=== PATIENT | female | born 1930 | race Hispanic/Latino ===

== ENCOUNTER 2017-01-13 02:58 | Observation (INO) | payer MEDICARE, BC ==
[2017-01-13 03:05] VITALS: BMI 27.2
--- NOTE | 2017-01-13 03:07 | ED PDOC ---
Arrival/HPI - General Chief Complaint: Syncope Time Seen by Provider: 01/13/17 03:00 Historian: Patient - History of Present Illness Narrative History of Present Illness (Text): 01/13/17 03:07 Belinda Orellana is an 86 year old female, whose past medical history includes hypertension, dementia, hyperlipidemia and syncope, was initially brought to the [facility] Emergency room by EMS for syncopal episode, subsequently transferred to [facility]. As per daughter, patient was found lying on the floor in her feces on her right side yesterday evening. Daughter states fall was unwitnessed. Patient had a CT head, Chest X-ray and lab performed prior to transfer. CT head and Chest X-ray were negative. Labs were positive for UTI. Daughter requested patient to be transferred to [facility] for further evaluation. Patient denies any complaints at this time. Time/Duration: 24 hours Symptom Onset: Sudden Symptom Course: Improving Activities at Onset: Light Context: Home Past Medical History - Provider Review Nursing Documentation Reviewed: Yes - Cardiac Hx Cardiac Disorders: Yes Hx Hypertension: Yes - Pulmonary Hx Respiratory Disorders: No - Neurological Hx Neurological Disorder: Yes Hx Dementia: Yes (Vascular) - HEENT Hx HEENT Disorder: No - Renal Hx Renal Disorder: No - Endocrine/Metabolic Hx Endocrine Disorders: No - Hematological/Oncological Hx Blood Disorders: No - Integumentary Hx Dermatological Disorder: No - Musculoskeletal/Rheumatological Hx Falls: No - Gastrointestinal Hx Gastrointestinal Disorders: No - Genitourinary/Gynecological Hx Genitourinary Disorders: No - Psychiatric Hx Psychophysiologic Disorder: No Hx Substance Use: No - Past Surgical History Past Surgical History: Non-Contributing - Suicidal Assessment Feels Threatened In Home Enviroment: No Family/Social History - Physician Review Nursing Documentation Reviewed: Yes Family/Social History: No Known Family HX Smoking Status: Never Smoked Hx Alcohol Use: No Hx Substance Use: No Hx Substance Use Treatment: No Allergies/Home Meds Allergies/Adverse Reactions: Allergies No Known Allergies Allergy (Verified 07/09/13 15:19) Home Medications: Home Meds Medication Instructions Recorded Confirmed Amlodipine Besylate/Benazepril 1 cap PO DAILY 01/13/17 01/13/17 [Amlodipine Besylate and Benazepril Hydrochlor] Donepezil [Aricept] 10 mg PO HS 01/13/17 01/13/17 Ezetimibe/Simvastatin [Vytorin 10 1 tab PO HS 01/13/17 01/13/17 mg-10 mg] traZODone [Desyrel] 25 mg PO HS 01/13/17 01/13/17 Review of Systems - Physician Review All systems were reviewed & negative as marked: Yes - Review of Systems Constitutional: Normal Eyes: Normal ENT: Normal Respiratory: Normal. absent: SOB, Cough Cardiovascular: Syncope Musculoskeletal: Normal Skin: Normal. absent: Rash Neurological: Normal. absent: Headache, Dizziness Endocrine: Normal. absent: Diaphoresis Psychiatric: Normal Physical Exam Vital Signs Reviewed: Yes Vital Signs Temp Pulse Resp BP Pulse Ox 01/13/17 03:07 98.7 F 83 20 152/69 H 97 Temperature: Afebrile Blood Pressure: Normal Pulse: Regular Respiratory Rate: Normal Appearance: Positive for: Well-Appearing, Non-Toxic, Comfortable Pain Distress: None Mental Status: Positive for: Alert and Oriented X 3 - Systems Exam Head: Present: Atraumatic, Normocephalic Pupils: Present: PERRL Extroacular Muscles: Present: EOMI Conjunctiva: Present: Normal Mouth: Present: Moist Mucous Membranes. No: Dry Neck: Present: Normal Range of Motion. No: Meningeal Signs, MIDLINE TENDERNESS , Paraspinal Tenderness, JVD, Lymphadenopathy, Bruit, Trachea Midline, Other Respiratory/Chest: Present: Clear to Auscultation, Good Air Exchange. No: Respiratory Distress, Accessory Muscle Use Cardiovascular: Present: Regular Rate and Rhythm, Normal S1, S2. No: Murmurs Abdomen: Present: Normal Bowel Sounds. No: Tenderness, Distention, Peritoneal Signs Back: Present: Normal Inspection Upper Extremity: Present: Normal Inspection. No: Cyanosis, Edema Lower Extremity: Present: Normal Inspection Neurological: Present: GCS=15, CN II-XII Intact, Speech Normal Skin: Present: Warm, Dry, Normal Color. No: Rashes Psychiatric: Present: Alert, Oriented x 3, Normal Insight, Normal Concentration Medical Decision Making ED Course and Treatment: 01/13/17 03:07 Impression: 86 year old female presented to the Emergency department for a syncopal episode. Differential Diagnosis included but are not limited to: UTI vs. syncope Plan: -- EKG -- Labs -- XR Right Elbow -- XR Right Hip -- XR Right Knee -- Blood Culture -- Urine Culture -- Urinalysis -- Reassess and disposition Prior Visits: Notes and results from previous visits were reviewed. On 07/10/13 patient presented to the Emergency department for a syncopal epidose. Patient was admitted to the hospital for further evaluation. Progress Notes: CT Head performed at [facility] Emergency department satellite shows no acute intracranial hemorrhage, Chest X-ray shows no acute processes. Will repeat labs. Pt was accepted by Dr. Ch prior to arrival under her service. Pt will go to Telemetry observation for syncope and UTI. 01/13/17 03:33 Reviewed EKG, NSR at [address]-segment elevations or depressions, no T-wave inversions, normal intervals. - EKG Interpretation Interpreted by ED Physician: Yes Type: 12 lead EKG - Scribe Statement The provider has reviewed the documentation as recorded by the Jamaibloree Ponce training under Lakesha Hooks. All medical record entries made by the Scribe were at my direction and personally dictated by me. I have reviewed the chart and agree that the record accurately reflects my personal performance of the history, physical exam, medical decision making, and the department course for this patient. I have also personally directed, reviewed, and agree with the discharge instructions and disposition. Disposition/Present on Arrival - Present on Arrival History of DVT/PE: No History of Uncontrolled Diabetes: No Urinary Catheter: No History of Decub. Ulcer: No History Surgical Site Infection Following: None - Disposition
[2017-01-13 04:27] LABS: ALB/GLOB RATIO 1.2 (1.1-1.8); ALKALINE PHOSPHATASE 83 U/L (38-126); ALT/SGPT 30 U/L (7-56); AST/SGOT 46 U/L (14-36); BILIRUBIN,TOTAL 0.8 mg/dL (0.2-1.3); BLOOD UREA NITROGEN 8 mg/dL (7-21); CARBON DIOXIDE 29 mmol/L (21-33); CHLORIDE 103 mmol/L (98-107); GFR AFRICAN-AMERICAN > 60; GLUCOSE,RANDOM 108 mg/dL (70-110); POTASSIUM 3.4 mmol/L (3.6-5.0); SODIUM 138 mmol/L (132-148); TOTAL PROTEIN 6.8 g/dL (5.8-8.3)
[2017-01-13] MEDS ORDERED: Potassium Chloride 20 mEq ER Tab PO STA (04:30)
[2017-01-13 04:40] LABS: TROPONIN I 0.02 ng/mL
[2017-01-13] MEDS: Sodium Chloride 0.9% 1,000 ML IV SCH ×2 (05:02→17:07)
[2017-01-13 05:05] LABS: BASO # 0.02 K/mm3 (0.0-2.0); BASO % 0.2 % (0.0-3.0); EOS % 0.4 % (1.5-5.0); GRAN # 7.04 (1.4-6.5); GRAN % 79.2 % (50.0-68.0); HEMATOCRIT 34.5 % (36.0-48.0); LYMPH # 1.4 (1.2-3.4); LYMPH % 16.2 % (22.0-35.0); MEAN CELL VOLUME 72.8 fl (80.0-105.0); MEAN CORPUSCULAR HGB CONC 31.6 g/dl (31.0-37.0); MEAN PLATELET VOLUME 10.1 fl (7.0-11.0); MONO # 0.4 (0.1-0.6); RED CELL DISTRIBUTION WIDTH 15.6 % (11.5-14.5); WHITE BLOOD COUNT 8.9 10^3/ul (4.5-11.0)
[2017-01-13 07:23] LABS: VENOUS BLOOD GAS BASE EXCESS 2.6 mmol/L (0.0-2.0); VENOUS BLOOD PH 7.43 (7.32-7.43)
--- NOTE | 2017-01-13 09:31 | CARD ---
APPROVED REPORT EKG Measurement Heart [id number] <Conclusion> Normal sinus rhythm NSSTW changes, new since ECG 07/10/13
--- NOTE | 2017-01-13 10:30 | RAD ---
PROCEDURE: Right Hip and pelvis Radiographs. HISTORY: fall COMPARISON: None. FINDINGS: BONES: Normal. No fracture. JOINTS: Normal. SOFT TISSUES: Normal. OTHER FINDINGS: None. IMPRESSION: Normal radiographs of right hip.
--- NOTE | 2017-01-13 10:31 | RAD ---
PROCEDURE: Right Knee Radiographs. HISTORY: fall COMPARISON: None. FINDINGS: BONES: Normal. No fracture. JOINTS: Normal. No osteoarthritis. JOINT EFFUSION: None. OTHER FINDINGS: None. IMPRESSION: Normal radiographs of the right knee.
--- NOTE | 2017-01-13 10:32 | RAD ---
PROCEDURE: Radiographs of the right elbow. HISTORY: fall COMPARISON: No prior. FINDINGS: BONES: Normal. No fracture. JOINTS: Normal. No osteoarthritis. SOFT TISSUES: Normal. JOINT EFFUSION: None. OTHER FINDINGS: None. IMPRESSION: Unremarkable radiographs of the right elbow.
[2017-01-13 11:55] LABS: CHOLESTEROL 157 mg/dL (130-200)
--- NOTE | 2017-01-13 19:57 | HP ---
HISTORY OF PRESENT ILLNESS: The patient is an 86-year-old with history of dementia, was taken to [facility], which she was evaluated by ER physician after she had a fall, so she was transferred to [facility] for further management and possible observation. The patient has history of dementia, history is taken from her daughter. She lives by herself. According to daughter, she went to the bathroom and after that she urinated on the floor and probably slipped and fell. She was able to crawl and daughter was trying to call her, but since she did not pharmacy picking tech the phone, she came in and she found her on the floor leaning on the right side. The patient cannot recall. She does not remember passing out. She cannot say that she slipped. No history of nausea or vomiting. No history of fever. No history of cough, congestion. PAST MEDICAL HISTORY: Significant for; 1. Hypertension. 2. Dementia. 3. Hyperlipidemia. ALLERGIES: SHE IS NOT ALLERGIC TO ANY MEDICATIONS. MEDICATIONS AT HOME: She is on trazodone, she is on Vytorin 10/10 daily, Aricept 10 mg daily, and amlodipine. SOCIAL HISTORY: She lives by herself. She has 8 children. PAST SURGICAL HISTORY: Significant for 7 vaginal delivery and one . REVIEW OF SYSTEMS: She does not complain of any headache. No nausea, no vomiting, no diarrhea. Eating and tolerating. PHYSICAL EXAMINATION VITAL SIGNS: She is afebrile. Pulse 69, respirations 20, blood pressure 141/64. LUNGS: Bilateral good airflow. No rhonchi or crackles. HEART: S1 and S2 audible. ABDOMEN: Soft, nontender. No rebound, no guarding. NEUROLOGICAL: She is awake, alert, oriented, but forgetful. Moves all extremities. LABORATORY EXAMINATION: WBC is 8.9, hemoglobin 10.9, hematocrit 34.5, platelet of 336. Chemistry; sodium 138, potassium 3.4, chloride 103, CO2 of 29, BUN 8, creatinine 0.7. Blood sugar of 108. LFTs are within normal limits. She has x-ray of the elbow unremarkable with no fracture. X-ray of the knee has normal findings. X-ray of the hip and pelvis also found to be normal. ASSESSMENT: 1. Status post fall, unwitnessed. 2. Right elbow contusion. 3. History of hypertension. 4. Hyperlipidemia. 5. Dementia. PLAN: We will get urine culture, physical therapy evaluation and treatment will be started. We will restart her usual medication. Discussed with the patient's daughter who is at the bedside. After physical therapy evaluation, will be assessed that she can be discharged home tomorrow or she should be a candidate of TCU. Meghan Ch MD
[2017-01-14 06:35] LABS: ALKALINE PHOSPHATASE 67 U/L (38-126); ALT/SGPT 35 U/L (7-56); AST/SGOT 45 U/L (14-36); BILIRUBIN,TOTAL 0.5 mg/dL (0.2-1.3); BLOOD UREA NITROGEN 7 mg/dL (7-21); CALCIUM 8.5 mg/dL (8.4-10.5); CARBON DIOXIDE 25 mmol/L (21-33); CHLORIDE 109 mmol/L (98-107); GFR AFRICAN-AMERICAN > 60; GLUCOSE,RANDOM 93 mg/dL (70-110); SODIUM 140 mmol/L (132-148); TOTAL PROTEIN 6.1 g/dL (5.8-8.3)
[2017-01-14 07:03] LABS: THYROID STIMULATING HORMONE 4.26 mIU/mL (0.46-4.68)
[2017-01-14] MEDS: Sodium Chloride 0.9% 1,000 ML IV SCH (07:33)
--- NOTE | 2017-01-14 10:37 | PN ---
DATE: 01/14/2017 SUBJECTIVE: The patient has no complaints of any chest pain. No shortness of breath and no headaches. PHYSICAL EXAMINATION: VITAL SIGNS: Temperature is 97.9, pulse of 80, blood pressure of 163/75, and respirations of 18. GENERAL: The patient is lying in bed, flat, comfortable. HEENT: No oral lesion. Anicteric sclerae. Moist mucosa. NECK: No JVD, adenopathy, or thyromegaly. CARDIOVASCULAR: S1 and S2, regular. No murmurs, rubs, or gallops. LUNGS: Clear to auscultation bilaterally. No wheeze, rales, or rhonchi. ABDOMEN: Bowel sounds are positive, soft, nontender and nondistended. EXTREMITIES: No cyanosis, clubbing or edema. On the right elbow, there is mild swelling and no redness. LABORATORY DATA: White count of 8.9, hemoglobin of 10.9, and creatinine of 0.7. ASSESSMENT: 1. Fall. 2. Right elbow contusion. 3. Dementia. 4. Dyslipidemia. 5. Hypertension. PLAN: The patient is currently comfortable. The patient is going to continue her [facility] for hypertension. She has potassium replaced. I did speak to the patient's daughter to give an update. We will get physical therapy and possible home visiting nurses to home. Condition is stable. Activities increase as tolerated. Charanjit Garner MD
[2017-01-14 10:57] LABS: FREE T4 1.4 ng/dL (0.78-2.19)
--- NOTE | 2017-01-14 11:18 | DS ---
HISTORY OF PRESENT ILLNESS: The patient is an 86-year-old female who had come into the hospital with past medical history of dementia. She had a fall. She was transferred to the [place] ER for further management. The patient has no complaints of any chest pain, no shortness of breath, no headaches. She had multiple x-rays done that showed no fractures. She is eating. She is awake and alert. PHYSICAL EXAMINATION: VITAL SIGNS: Temperature is 98.2, blood pressure is 150/60, respirations 18, O2 saturation 93%. GENERAL: The patient is lying in bed, flat, comfortable. HEENT: No oral lesion. Anicteric sclerae. Moist mucosa. NECK: No JVD, adenopathy, or thyromegaly. CARDIOVASCULAR: S1 and S2, regular. No murmurs, rubs, or gallops. LUNGS: Clear to auscultation bilaterally. No wheeze, rales, or rhonchi. ABDOMEN: Bowel sounds are positive, soft, nontender and nondistended. EXTREMITIES: No cyanosis, clubbing or edema. ASSESSMENT: 1. Fall. 2. Right elbow contusion. 3. Hypertension. 4. Dyslipidemia. 5. Dementia. PLAN: The patient is currently comfortable. She had no events on telemetry. She is on Aricept for her dementia. She is on amlodipine for her hypertension. Her blood pressure is controlled. She is on IV fluids. I will discontinue the patient's IV fluids at this point. Her potassium is back to normal at 4.0, it was low when she came into the hospital at 3.4. Her TSH is normal at 4.26. She is on a heart-healthy diet. We will speak to the patient's family. If they are agreeable, we will discharge the patient home. Charanjit Garner MD
[2017-01-14 11:24] VITALS: O2SAT 94
[2017-01-14 13:32] VITALS: BP 140/66; PULSE 76; RESP 20; TEMP 99.2
== END 2017-01-14 16:14 | disposition home health service (06) ==
LOC: ED 02:58 → ERH 03:13 → 3RSO 05:24
PROVIDERS: ADMIT Internal Medicine; ATTEND Internal Medicine Nephrology
DX: R55 Syncope and collapse (principal); N39.0 Urinary tract infection, site not specified; S50.01XA Contusion of right elbow, initial encounter; F03.90 Unspecified dementia, unspecified severity, without behavioral disturbance, psychotic disturbance, mood disturbance, and anxiety; I10 Essential (primary) hypertension; E78.5 Hyperlipidemia, unspecified; W19.XXXA Unspecified fall, initial encounter; Y92.009 Unspecified place in unspecified non-institutional (private) residence as the place of occurrence of the external cause
CPT/HCPCS: 36415; 73080; 73502; 73560; 80053; 80061; 82803; 84439; 84443; 84484; 85025; 87040; 93005; 97116; 97161; 97530; 99285; G0378; G8978; G8979; J7040

== ENCOUNTER 2017-10-31 13:40 | Emergency (ER) | payer MEDICARE, BC ==
[2017-10-31 13:40] VITALS: BMI 27.2
--- NOTE | 2017-10-31 14:01 | ED PDOC ---
Arrival/HPI - General Chief Complaint: Trauma Time Seen by Provider: 10/31/17 13:43 Historian: Patient - History of Present Illness Narrative History of Present Illness (Text): 10/31/17 13:56 86 year old female, whose past medical history includes hypertension, hyperlipidemia and,dementia, presents to the emergency department s/p trip and fall. Patient was walking outside today for her daily walk when she tripped over curb. The fall was witnessed by multiple people who confirmed her fall after tripping on the curb. As per EMS, a bystander said patient had no loss of consciousness. She denies any anticoagulant use. Patient's last Tetanus was less than 10 years ago. Patient complaining of mild headache, but denies any chest pain, shortness of breath, nausea, vomiting, diarrhea, urinary symptoms, back pain, neck pain, hip pain, dizziness, or any other complaints. PMD: Dr. Jackson 10/31/17 16:56 Time/Duration: Prior to Arrival Symptom Onset: Sudden Activities at Onset: Light Context: Tripped Past Medical History - Provider Review Nursing Documentation Reviewed: Yes - Cardiac Hx Cardiac Disorders: Yes Hx Hypertension: Yes - Pulmonary Hx Respiratory Disorders: No - Neurological Hx Neurological Disorder: Yes Hx Dementia: Yes (Vascular) - HEENT Hx HEENT Disorder: No - Renal Hx Renal Disorder: No - Endocrine/Metabolic Hx Endocrine Disorders: No - Hematological/Oncological Hx Blood Disorders: No - Integumentary Hx Dermatological Disorder: No - Musculoskeletal/Rheumatological Hx Falls: No - Gastrointestinal Hx Gastrointestinal Disorders: No - Genitourinary/Gynecological Hx Genitourinary Disorders: No - Psychiatric Hx Psychophysiologic Disorder: No Hx Substance Use: No - Past Surgical History Past Surgical History: Non-Contributing - Anesthesia Hx Anesthesia: Yes Hx Anesthesia Reactions: No Hx Malignant Hyperthermia: No - Suicidal Assessment Feels Threatened In Home Enviroment: No Family/Social History - Physician Review Nursing Documentation Reviewed: Yes Family/Social History: No Known Family HX Smoking Status: Never Smoked Hx Alcohol Use: No Hx Substance Use: No Hx Substance Use Treatment: No Allergies/Home Meds Allergies/Adverse Reactions: Allergies No Known Allergies Allergy (Verified 07/09/13 15:19) Home Medications: Home Meds Medication Instructions Recorded Confirmed Amlodipine Besylate/Benazepril 1 cap PO DAILY 01/13/17 01/14/17 [Amlodipine-Benazepril 10-20 mg] Donepezil [Aricept] 10 mg PO DAILY 01/13/17 01/14/17 Ezetimibe/Simvastatin [Vytorin 1 tab PO HS 01/13/17 01/13/17 10-10 mg Tablet] traZODone [Desyrel] 25 mg PO HS 01/13/17 01/14/17 Review of Systems - Physician Review All systems were reviewed & negative as marked: Yes - Review of Systems Respiratory: absent: SOB Cardiovascular: absent: Chest Pain Gastrointestinal: absent: Diarrhea, Nausea, Vomiting Genitourinary Female: absent: Dysuria, Frequency, Hematuria Musculoskeletal: absent: Back Pain, Neck Pain, Other (hip pain) Neurological: Headache. absent: Dizziness, Other (loss of consciousness) Physical Exam Vital Signs Reviewed: Yes Vital Signs Pulse Resp BP Pulse Ox 10/31/17 17:00 74 19 163/55 H 96 10/31/17 13:50 79 18 176/72 H 95 Temperature: Afebrile Blood Pressure: Hypertensive Pulse: Regular Respiratory Rate: Normal Appearance: Positive for: Well-Appearing, Non-Toxic, Comfortable Pain Distress: None Mental Status: Positive for: Alert and Oriented X 3 - Systems Exam Head: Present: Atraumatic, Normocephalic, Laceration (3cm laceration to the anterior forehead. No active blessing) Pupils: Present: PERRL Extroacular Muscles: Present: EOMI Conjunctiva: Present: Normal Mouth: Present: Moist Mucous Membranes Neck: Present: Normal Range of Motion. No: MIDLINE TENDERNESS Respiratory/Chest: Present: Clear to Auscultation, Good Air Exchange. No: Respiratory Distress, Accessory Muscle Use Cardiovascular: Present: Regular Rate and Rhythm, Normal S1, S2. No: Murmurs Abdomen: No: Tenderness, Distention, Peritoneal Signs Back: Present: Normal Inspection Upper Extremity: Present: Other (quarter sized bruise to the left forearm). No : Cyanosis, Edema Lower Extremity: Present: Normal Inspection. No: Edema Neurological: Present: GCS=15, CN II-XII Intact, Speech Normal Skin: Present: Warm, Dry, Normal Color. No: Rashes Psychiatric: Present: Alert, Oriented x 3, Normal Insight, Normal Concentration Medical Decision Making ED Course and Treatment: 10/31/17 14:00 Impression: 86 year old female presents complaining of a headache s/p trip and fall over a curb. Plan: -- CT head w/o contrast -- Reassess and disposition Progress Notes: PROCEDURE: CT HEAD WITHOUT CONTRAST. Dictator : Ken Richardson MD Report Date : 10/31/2017 15:43:46 IMPRESSION: No acute intracranial findings 10/31/17 15:56 CT head negative. Laceration repaired by me and sutures placed. Bacitracin applied. Daughter requesting ua and ucx as requested by other family members but patient and daughter continue to report, "she is fine, she just tripped, we are just trying to shut them up." Patient denies dysuria. 10/31/17 17:21 Spoke to patient and daughter at length. Now reports frequency. Will dc with antibiotics for uti. Were given detailed return instructions. - Lab Interpretations Lab Results: Lab Results 10/31/17 15:53: Urine Color Yellow, Urine Appearance Clear, Urine pH 7.5, Ur Specific [place] 1.010, Urine Protein Negative, Urine Glucose (UA) Negative, Urine Ketones Negative, Urine Blood Negative, Urine Nitrate Negative, Urine Bilirubin Negative, Urine Urobilinogen 0.2, Ur Leukocyte Esterase Moderate H, Urine RBC 0 - 2, Urine WBC 20 - 25, Ur Epithelial Cells 6 - 8, Urine Bacteria Many - RAD Interpretation Radiology Orders: 10/31/17 13:49 HEAD W/O CONTRAST [CT] Stat - Medication Orders Current Medication Orders: Discontinued Medications Acetaminophen (Tylenol 325mg Tab) 650 mg PO STAT STA Stop: 10/31/17 14:23 Last Admin: 10/31/17 14:52 Dose: 650 mg MAR Pain/Vitals Document 10/31/17 14:52 EQ (Rec: 10/31/17 14:52 EQ [id number]) Pain Reassessment Is This A Pain ReAssessment? No Sleep Is patient sleeping during reassessment? No Presence of Pain Presence of Pain Yes Bacitracin (Bacitracin) 1 ea TOP STAT STA Stop: 10/31/17 15:55 Last Admin: 10/31/17 16:14 Dose: Not Given Non-Admin Reason: Patient Refused Lidocaine HCl (Lidocaine 1% 5 Ml) 0 mg IJ STAT STA Stop: 10/31/17 15:33 Last Admin: 10/31/17 15:54 Dose: 50 mg - Scribe Statement The provider has reviewed the documentation as recorded by the Leigha Scott Provider Scribe Attestation: All medical record entries made by the Jamaibloree were at my direction and personally dictated by me. I have reviewed the chart and agree that the record accurately reflects my personal performance of the history, physical exam, medical decision making, and the department course for this patient. I have also personally directed, reviewed, and agree with the discharge instructions and disposition. Disposition/Present on Arrival - Present on Arrival Any Indicators Present on Arrival: No History of DVT/PE: No History of Uncontrolled Diabetes: No Urinary Catheter: No History of Decub. Ulcer: No History Surgical Site Infection Following: None - Disposition Have Diagnosis and Disposition been Completed?: Yes Diagnosis: UTI (urinary tract infection), Fall, Laceration of head Disposition: HOME/ ROUTINE Disposition Time: 16:48 Patient Plan: Discharge Patient Problems: Current Active Problems Problem Status Onset UTI (urinary tract infection) Acute Fall Acute Laceration of head Acute Condition: GOOD Discharge Instructions (ExitCare): Urinary Tract Infections in Adults, Preventing Falls in the Older Adult, Preventing Falls Additional Instructions: Follow-up with Dr. Jackson within 2 days. Return to ED if condition worsens. Take antibiotics as prescribed. Suture removal in 7-10 days Prescriptions: Cephalexin [Keflex] 500 mg PO BID #14 capsule Referrals: Devi Jackson MD [Primary Care Provider] - Follow up with primary Forms: [place] (Moroccan) Laceration - Laceration Repair No standard instances Wound Length (In cm): 3 Description Of Wound: Linear Wound Cleansed With: Sterile Saline Anesthesia: Lidocaine 1% Wound Examination: Irrigated With Saline Wound Closure: Suture (5) Suture Technique And Material Used: Interrupted Wound Complexity: Simple
[2017-10-31] MEDS ORDERED: Lidocaine 1% 5ml Abboject IJ STA (15:32)
--- NOTE | 2017-10-31 15:45 | CT ---
Date of service: 10/31/2017 PROCEDURE: CT HEAD WITHOUT CONTRAST. HISTORY: mechanical fall COMPARISON: None available. TECHNIQUE: Axial computed tomography images were obtained through the head/brain without intravenous contrast. Radiation dose: Total exam DLP = 966 mGy-cm. This CT exam was performed using one or more of the following dose reduction techniques: Automated exposure control, adjustment of the mA and/or kV according to patient size, and/or use of iterative reconstruction technique. FINDINGS: HEMORRHAGE: No intracranial hemorrhage. BRAIN: No mass effect or edema. Severe chronic microvascular changes. Moderate volume loss VENTRICLES: Unremarkable. No hydrocephalus. CALVARIUM: Unremarkable. PARANASAL SINUSES: Unremarkable as visualized. No significant inflammatory changes. MASTOID AIR CELLS: Unremarkable as visualized. No inflammatory changes. OTHER FINDINGS: Scalp swelling over the left frontal region. IMPRESSION: No acute intracranial findings
[2017-10-31] MEDS ORDERED: Bacitracin 500 Units/gm Oint Foilpak UD TOP STA (15:54)
[2017-10-31 16:22] LABS: PH,URINE 7.5 (4.7-8.0); URINE BILIRUBIN NEGATIVE (NEGATIVE); URINE BLOOD NEGATIVE (NEGATIVE); URINE GLUCOSE (UA) NEGATIVE (NEGATIVE); URINE LEUKOCYTE ESTERASE MODERATE Leu/uL (NEGATIVE); URINE PROTEIN NEGATIVE mg/dL (<30 mg/dL); URINE UROBILINOGEN 0.2 E.U./dL (<1 E.U./dL)
[2017-10-31 16:24] LABS: URINE APPEARANCE CLEAR (CLEAR); URINE COLOR YELLOW (YELLOW)
[2017-10-31 16:43] LABS: URINE RBC 0 - 2 /hpf (0-2); URINE WBC 20 - 25 /hpf (0-6)
[2017-10-31 16:44] LABS: URINE BACTERIA MANY (NEG)
[2017-10-31 17:00] VITALS: BP 163/55; PULSE 74; RESP 19; O2SAT 96
== END 2017-10-31 17:00 | disposition home or self-care (01) ==
LOC: ED 13:40
DX: S01.81XA Laceration without foreign body of other part of head, initial encounter (principal); W01.0XXA Fall on same level from slipping, tripping and stumbling without subsequent striking against object, initial encounter; Y93.01 Activity, walking, marching and hiking; Y92.480 Sidewalk as the place of occurrence of the external cause; N39.0 Urinary tract infection, site not specified

== ENCOUNTER 2017-12-30 17:10 | Emergency (ER) | payer MEDICARE, BC ==
[2017-12-30 17:10] VITALS: BMI 27.2
[2017-12-30 17:23] VITALS: RESP 18; TEMP 98.4
[2017-12-30] MEDS ORDERED: TDAP Vaccine 0.5 mL Syr IM ONE (17:28)
--- NOTE | 2017-12-30 17:37 | ED PDOC ---
Arrival/HPI - General Chief Complaint: Trauma Time Seen by Provider: 12/30/17 17:20 Historian: Patient EM Caveat: Dementia - History of Present Illness Narrative History of Present Illness (Text): 12/30/17 17:41 A 87 year old female, whose past medical history includes hypertension, hyperlipidemia, and dementia, brought in by EMS to the emergency department for fall injuries. Patient was found on the ground after having fallen down. Patient does not remember how she fell. Limited HPI and ROS due to patient's dementia. she is oriented to person only. She thinks she is in [place]. Associated Symptoms (Text): 12/30/17 18:03 Daughter arrives and reports a history of dementia. Patient lives at home alone. The daughter is there daily to try to help care for her. She is interested in jail placement. Past Medical History - Provider Review Nursing Documentation Reviewed: Yes - Reproductive Menopause: No - Cardiac Hx Cardiac Disorders: Yes Hx Hypertension: Yes - Pulmonary Hx Respiratory Disorders: No - Neurological Hx Neurological Disorder: Yes Hx Dementia: Yes (Vascular) - HEENT Hx HEENT Disorder: No - Renal Hx Renal Disorder: No - Endocrine/Metabolic Hx Endocrine Disorders: No - Hematological/Oncological Hx Blood Disorders: No - Integumentary Hx Dermatological Disorder: No - Musculoskeletal/Rheumatological Hx Falls: No - Gastrointestinal Hx Gastrointestinal Disorders: No - Genitourinary/Gynecological Hx Genitourinary Disorders: No - Psychiatric Hx Psychophysiologic Disorder: No Hx Substance Use: No - Past Surgical History Past Surgical History: Non-Contributing - Anesthesia Hx Anesthesia: Yes Hx Anesthesia Reactions: No Hx Malignant Hyperthermia: No - Suicidal Assessment Feels Threatened In Home Enviroment: No Family/Social History - Physician Review Nursing Documentation Reviewed: Yes Family/Social History: No Known Family HX Smoking Status: Never Smoked Hx Alcohol Use: No Hx Substance Use: No Hx Substance Use Treatment: No Allergies/Home Meds Allergies/Adverse Reactions: Allergies No Known Allergies Allergy (Verified 07/09/13 15:19) Home Medications: Home Meds Medication Instructions Recorded Confirmed Amlodipine Besylate/Benazepril 1 cap PO DAILY 01/13/17 12/30/17 [Amlodipine-Benazepril 10-20 mg] Donepezil [Aricept] 10 mg PO DAILY 01/13/17 12/30/17 Ezetimibe/Simvastatin [Vytorin 1 tab PO HS 01/13/17 12/30/17 10-10 mg Tablet] traZODone [Desyrel] 25 mg PO HS 01/13/17 12/30/17 Review of Systems - Review of Systems Systems not reviewed;Unavailable: Dementia Physical Exam Vital Signs Reviewed: Yes Vital Signs Temp Pulse Resp BP Pulse Ox 12/30/17 17:22 98.4 F 105 H 18 159/71 H 95 Temperature: Afebrile Blood Pressure: Hypertensive Pulse: Regular Respiratory Rate: Normal Appearance: Positive for: Well-Appearing, Non-Toxic, Comfortable Pain Distress: None Mental Status: Positive for: other (oriented 1 only). No: Alert and Oriented X 3 (alert and oriented x 1 (person only)) - Systems Exam Head: Present: Abrasion (chin, nose, and forehead). No: Tenderness Pupils: Present: PERRL Extroacular Muscles: Present: EOMI Conjunctiva: Present: Normal Ears: Present: NORMAL TM, Normal Canal. No: Erythema, TM Bulging Mouth: Present: Moist Mucous Membranes Pharnyx: No: ERYTHEMA, EXUDATE, TONSILS ENLARGED Nose (External): Present: Abrasion, Other (nontender and clinically no fracture.) Nose (Internal): Present: Normal Inspection Neck: Present: Normal Range of Motion Respiratory/Chest: Present: Clear to Auscultation, Good Air Exchange. No: Respiratory Distress, Accessory Muscle Use Cardiovascular: Present: Regular Rate and Rhythm, Normal S1, S2. No: Murmurs Abdomen: No: Tenderness, Distention, Peritoneal Signs, Rebound, Guarding Back: Present: Normal Inspection Upper Extremity: Present: Normal Inspection. No: Cyanosis, Edema Lower Extremity: Present: Normal Inspection. No: Edema Neurological: Present: GCS=15, CN II-XII Intact, Speech Normal, Motor Func Grossly Intact Skin: Present: Warm, Dry, Normal Color. No: Rashes Psychiatric: Present: Alert. No: Oriented x 3 (x 1 (person only)) Medical Decision Making ED Course and Treatment: 12/30/17 17:41 Impression: 87 year old female with fall injuries. Plan: -- EKG -- Head CT -- Chest X-Ray -- Labs -- Boostrix Vaccine -- Reassess and disposition Prior Visits: Notes and results from previous visits were reviewed. Patient last seen in the ED on 10/31/2017 for s/p trip and fall. Progress Notes: 12/30/17 18:05 EKG shows normal sinus rhythm rate approximately 100 with poor R waves and Q waves inferiorly with no acute ST or T-wave changes 12/30/17 19:41 Family initially wanted jail placement. I spoke with who agreed to admit the patient to the hospital with the plan of jail placement. When the family was confronted with this reality, they did not wish her to be admitted to the hospital and want to take her home and try to care for her at home. Patient will be discharged to follow-up with her PMD Dr. Jackson for social service intervention. - RAD Interpretation Radiology Orders: 12/30/17 17:26 HEAD W/O CONTRAST [CT] Stat 12/30/17 17:27 CHEST PORTABLE [RAD] Stat Chest one view as read by the radiologist shows no infiltrate effusion or cardiomegaly. CT scan of the head as read by the radiologist shows no acute findings. 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 I have reviewed the chart and agree that the record accurately reflects my personal performance of the history, physical exam, medical decision making, and the department course for this patient. I have also personally directed, reviewed, and agree with the discharge instructions and disposition. Disposition/Present on Arrival - Present on Arrival Any Indicators Present on Arrival: No History of DVT/PE: No History of Uncontrolled Diabetes: No Urinary Catheter: No History of Decub. Ulcer: No History Surgical Site Infection Following: None - Disposition Have Diagnosis and Disposition been Completed?: Yes Diagnosis: Head contusion, Nose abrasion, Chronic dementia Disposition: HOME/ ROUTINE Disposition Time: 19:43 Patient Plan: Discharge Condition: FAIR Discharge Instructions (ExitCare): Dementia (Including Alzheimer Disease), Skin Abrasions, Minor Head Injury Forms: [employer] (Turkmen)
[2017-12-30 18:09] LABS: BASO # 0.02 K/mm3 (0.0-2.0); BASO % 0.3 % (0.0-3.0); EOS # 0.1 (0.0-0.7); EOS % 1.3 % (1.5-5.0); GRAN # 4.76 (1.4-6.5); GRAN % 66.4 % (50.0-68.0); LYMPH # 1.9 (1.2-3.4); LYMPH % 26.1 % (22.0-35.0); MEAN CELL VOLUME 77.7 fl (80.0-105.0); MEAN CORPUSCULAR HGB CONC 32.2 g/dl (31.0-37.0); MEAN PLATELET VOLUME 9.9 fl (7.0-11.0); MONO # 0.4 (0.1-0.6); MONO % 5.9 % (1.0-6.0); RBC 4.8 10^6/uL (3.5-6.1); RED CELL DISTRIBUTION WIDTH 14.7 % (11.5-14.5); WHITE BLOOD COUNT 7.2 10^3/uL (4.5-11.0)
[2017-12-30 18:14] LABS: INR 0.99; PARTIAL THROMBOPLASTIN TIME 24.7 Seconds (25.1-36.5); PROTHROMBIN TIME 11.3 SECONDS (9.4-12.5)
[2017-12-30 18:16] LABS: ALB/GLOB RATIO 1.1 (1.1-1.8); ALBUMIN 4.2 g/dL (3.0-4.8); ALT/SGPT 17 U/L (7-56); AST/SGOT 26 U/L (14-36); BLOOD UREA NITROGEN 12 mg/dL (7-21); CALCIUM 9.3 mg/dL (8.4-10.5); GFR NON-AFRICAN AMERICAN > 60
[2017-12-30 18:27] LABS: TROPONIN I < 0.01 ng/mL
--- NOTE | 2017-12-30 18:29 | RAD ---
Date of service: 12/30/2017 HISTORY: Altered mental status COMPARISON: No prior. FINDINGS: LUNGS: No active pulmonary disease. PLEURA: No significant pleural effusion identified, no pneumothorax apparent. CARDIOVASCULAR: No atherosclerotic calcification present No radiographic findings to suggest acute or significant cardiovascular disease. OSSEOUS STRUCTURES: No significant abnormalities. VISUALIZED UPPER ABDOMEN: Calcified mass in the left upper quadrant a stable finding compared to the prior chest radiograph OTHER FINDINGS: None. IMPRESSION: No active disease. No significant interval change compared to the prior examination(s).
[2017-12-30] MEDS ORDERED: Bacitracin 500 Units/gm Oint Foilpak UD TOP STA (18:47)
--- NOTE | 2017-12-30 19:03 | CT ---
Date of service: 12/30/2017 PROCEDURE: CT HEAD WITHOUT CONTRAST. HISTORY: ams COMPARISON: 10/31/2017. TECHNIQUE: Axial computed tomography images were obtained through the head/brain without intravenous contrast. Supplemental Coronal and Sagittal projections created and reviewed. Radiation dose: Total exam DLP = 949.87 mGy-cm. This CT exam was performed using one or more of the following dose reduction techniques: Automated exposure control, adjustment of the mA and/or kV according to patient size, and/or use of iterative reconstruction technique. FINDINGS: HEMORRHAGE: No intracranial hemorrhage. BRAIN: No mass effect or edema. Cortical and cerebellar atrophy, periventricular small vessel disease. VENTRICLES: Unremarkable. No hydrocephalus. CALVARIUM: Unremarkable. 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 MASTOID AIR CELLS: Unremarkable as visualized. No inflammatory changes. OTHER FINDINGS: None. IMPRESSION: No acute intracranial abnormalities. No significant findings to account for the clinical presentation. No significant interval change compared to the prior examination(s).
[2017-12-30 20:34] VITALS: BP 139/70; PULSE 90; O2SAT 100
[2017-12-30] MEDS ORDERED: SIMVASTATIN PO SCH (22:00)
[2017-12-30] MEDS ORDERED: EZETIMIBE PO SCH (22:00)
--- NOTE | 2017-12-31 06:50 | CARD ---
APPROVED REPORT Date of service: 12/30/2017 EKG Measurement Heart [id number] <Conclusion> Normal sinus rhythm Normal ECG
== END 2017-12-30 19:58 | disposition home or self-care (01) ==
LOC: ED 17:10
DX: S00.31XA Abrasion of nose, initial encounter (principal); W19.XXXA Unspecified fall, initial encounter; Y92.89 Other specified places as the place of occurrence of the external cause; F03.90 Unspecified dementia, unspecified severity, without behavioral disturbance, psychotic disturbance, mood disturbance, and anxiety; I10 Essential (primary) hypertension; E78.5 Hyperlipidemia, unspecified; Z23 Encounter for immunization